=== PATIENT | female | born 1965 | race Caucasian/White ===

== ENCOUNTER 2020-02-21 14:32 | Emergency (ER) | payer SELFPAY ==
[~2020-02-21] VITALS: Ht 165.1 cm; Wt 105.0 kg
[2020-02-21] MEDS ORDERED: KETOROLAC 30MG/ML VIAL IM ONE (15:45)
[2020-02-21 16:46] VITALS: BP 148/6
== END 2020-02-21 16:46 | disposition home or self-care (01) ==
LOC: ER 14:35
DX: S46.911A Strain of unspecified muscle, fascia and tendon at shoulder and upper arm level, right arm, initial encounter (principal); S80.01XA Contusion of right knee, initial encounter; Z98.890 Other specified postprocedural states; V49.88XA Car occupant (driver) (passenger) injured in other specified transport accidents, initial encounter; Y93.89 Activity, other specified; Y92.89 Other specified places as the place of occurrence of the external cause; Y99.8 Other external cause status
CPT/HCPCS: 71045; 73030; 73564; 96372; 99284; J1885